=== PATIENT | male | born 1990 | race Caucasian/White ===

== ENCOUNTER 2019-01-17 23:40 | Emergency (ER) | payer OTHER ==
[2019-01-18 00:02] VITALS: BMI 26.4
[2019-01-18 00:04] VITALS: RESP 18; O2SAT 100
--- NOTE | 2019-01-18 01:53 | ED PDOC ---
HPI: Psych/Substance Abuse Time Seen by Provider: 01/18/19 00:51 Chief Complaint (Nursing): Alcohol Ingestion Chief Complaint (Provider): Alcohol Ingestion ED Caveat: Intoxicated History Per: Other (EMS) History/Exam Limitations: intoxication Additional Complaint(s): 28 years old male brought in for public intoxication after he fell asleep in [employer] car. History is limited due to patient's intoxicated states. PMD: None provided Past Medical History Reviewed: Historical Data, Nursing Documentation, Vital Signs Vital Signs: Last Vital Signs Temp 97.5 F L 01/18/19 00:02 Pulse 66 01/18/19 00:02 Resp 18 01/18/19 00:02 BP 111/79 01/18/19 00:02 Pulse Ox 100 01/18/19 00:02 - Medical History Other PMH: Unknown - Surgical History Other surgeries: Unknown - Family History Family History: States: Unknown Family Hx - Allergies Allergies/Adverse Reactions: Allergies Allergy/AdvReac Type Severity Reaction Status Date / Time No Known Allergies Allergy Verified 01/18/19 00:02 Review of Systems Review Of Systems: ROS cannot be obtained secondary to pt's inabilty to answer questions. Physical Exam - Reviewed Nursing Documentation Reviewed: Yes Vital Signs Reviewed: Yes - Physical Exam Appears: Positive for: Well, No Acute Distress Head Exam: Positive for: ATRAUMATIC, NORMOCEPHALIC Skin: Positive for: Normal Color, Warm, Dry Eye Exam: Positive for: Normal appearance, EOMI, PERRL Neck: Positive for: Normal, Painless ROM, Supple Cardiovascular/Chest: Positive for: Regular Rate, Rhythm. Negative for: Murmur Respiratory: Positive for: Normal Breath Sounds. Negative for: Respiratory Distress Gastrointestinal/Abdominal: Positive for: Normal Exam, Soft. Negative for: Tenderness Back: Positive for: Normal Inspection. Negative for: L CVA Tenderness, R CVA Tenderness Extremity: Positive for: Normal ROM. Negative for: Pedal Edema Neurological/Psych: Positive for: Oriented (to person only), Other (Speech slurred) - ECG O2 Sat by Pulse Oximetry: 100 (RA) Pulse Ox Interpretation: Normal Medical Decision Making Medical Decision Making: Time: 52 Initial impression: 28 y/o brought in for public intoxication. Initial plan: --Alcohol serum 0240 Patient is clinically sober for discharge. Diagnosis: alcohol intoxication Scribe Attestation: Documented by Marylin Whitfield, acting as a scribe for Stewart Dennison MD. Provider Scribe Attestation: All medical record entries made by the Scribe were at my direction and personally dictated by me. I have reviewed the chart and agree that the record accurately reflects my personal performance of the history, physical exam, medical decision making, and the department course for this patient. I have also personally directed, reviewed, and agree with the discharge instructions and disposition. Disposition - Clinical Impression Clinical Impression: Alcohol use - Patient ED Disposition Is Patient to be Admitted: No - Disposition Disposition: Routine/Home Disposition Time: 02:40 Condition: STABLE Instructions: Alcohol Use - When Is Drinking a Problem? Forms: [employer] (Italian)
[2019-01-18 02:36] VITALS: BP 116/80; PULSE 62; TEMP 98.1
== END 2019-01-18 02:20 | disposition home or self-care (01) ==
LOC: H.ER 23:40
DX: F10.129 Alcohol abuse with intoxication, unspecified (principal)

== ENCOUNTER 2019-01-25 02:48 | Emergency (ER) | payer SELFPAY ==
[2019-01-25 02:49] VITALS: BMI 26.4
[2019-01-25 03:05] VITALS: BP 102/70; PULSE 71; RESP 18; TEMP 98.7; O2SAT 99
--- NOTE | 2019-01-25 03:46 | ED PDOC ---
HPI: Psych/Substance Abuse Time Seen by Provider: 01/25/19 02:50 Chief Complaint (Nursing): Alcohol Ingestion Chief Complaint (Provider): Alcohol Ingestion History Per: Patient, EMS History/Exam Limitations: no limitations Additional Complaint(s): 28 years old male with no significant PMHx presents brought in by EMS after he fell asleep in [employer] on his way home from [place] and [employer] tow driver called EMS. Patient admits to drinking. He denies any complaints at this time, drugs or injuries. Patient lives on [address] [place] [address] and able to walk home steadily. PMD: None provided Past Medical History Reviewed: Historical Data, Nursing Documentation, Vital Signs Vital Signs: Last Vital Signs Temp 98.7 F 01/25/19 03:01 Pulse 71 01/25/19 03:01 Resp 18 01/25/19 03:01 BP 102/70 01/25/19 03:01 Pulse Ox 99 01/25/19 03:01 - Medical History PMH: No Chronic Diseases - Surgical History Surgical History: No Surg Hx - Family History Family History: States: Unknown Family Hx - Social History Alcohol: Social Drugs: Denies - Allergies Allergies/Adverse Reactions: Allergies Allergy/AdvReac Type Severity Reaction Status Date / Time No Known Allergies Allergy Verified 01/18/19 00:02 Review of Systems ROS Statement: Except As Marked, All Systems Reviewed And Found Negative Constitutional: Negative for: Other (complaints) Physical Exam - Reviewed Nursing Documentation Reviewed: Yes Vital Signs Reviewed: Yes - Physical Exam Appears: Positive for: No Acute Distress (mildly intoxicated) Head Exam: Positive for: ATRAUMATIC, NORMOCEPHALIC Skin: Positive for: Normal Color, Warm, Dry Eye Exam: Positive for: Normal appearance, EOMI, PERRL Neck: Positive for: Normal, Painless ROM, Supple Cardiovascular/Chest: Positive for: Regular Rate, Rhythm. Negative for: Murmur Respiratory: Positive for: Normal Breath Sounds. Negative for: Respiratory Distress Gastrointestinal/Abdominal: Positive for: Normal Exam, Soft. Negative for: Tenderness Back: Positive for: Normal Inspection. Negative for: L CVA Tenderness, R CVA Tenderness Extremity: Positive for: Normal ROM. Negative for: Pedal Edema, Deformity Neurological/Psych: Positive for: Awake, Alert, Oriented (x3), Gait (Steady). Negative for: Other (Slurred speech) - ECG O2 Sat by Pulse Oximetry: 99 (RA) Pulse Ox Interpretation: Normal Medical Decision Making Medical Decision Making: Time: 309 A/P: 28 yo male with mild intoxication --Patient is able to make decision for himself at this time --Patient is not impaired 331 Patient is able to walk independently, stable for discharge home. ScribeAttestation: Documented byMarylin Whitfield, acting as a scribe for Keith Washington MD. Provider ScribeAttestation: All medical record entries made by the Scribe were at my direction and personally dictated by me. I have reviewed the chart and agree that the record accurately reflects my personal performance of the history, physical exam, medical decision making, and the department course for this patient. I have also personally directed, reviewed, and agree with the discharge instructions and disposition. Disposition - Clinical Impression Clinical Impression: Alcohol ingestion - Patient ED Disposition Is Patient to be Admitted: No - Disposition Referrals: Sebastián Nicholson [Outside] Disposition: Routine/Home Disposition Time: 03:32 Condition: IMPROVED Instructions: Alcohol Use - When Is Drinking a Problem? Forms: [employer] (Tajik)
== END 2019-01-25 03:29 | disposition home or self-care (01) ==
LOC: H.ER 02:48
DX: F10.10 Alcohol abuse, uncomplicated (principal)